=== PATIENT | female | born 1980 | race Caucasian/White ===

== ENCOUNTER → 2019-07-17 19:11 | Outpatient (CLI) | payer OTHER, SELFPAY ==
[2019-07-17 19:42] LABS: Influenza A - CEPHEID Flu A POSITIVE (NEGATIVE); Influenza B - CEPHEID Flu B NEGATIVE (NEGATIVE)
== END ==
PROVIDERS: Visit Provider Physician Assistant
DX: R68.89 Other general symptoms and signs (principal)
CPT/HCPCS: 87502

== ENCOUNTER → 2020-09-03 16:43 | Outpatient (CLI) | payer OTHER, SELFPAY ==
[2020-09-03] MEDS: COVID-19 VACC #1, MRNA(MOD) 100 MCG/0.5 ML VIAL IM (16:48)
== END ==
PROVIDERS: Visit Provider Internal Medicine
DX: Z23 Encounter for immunization (principal)
CPT/HCPCS: 0011A; 91301

== ENCOUNTER → 2020-10-01 16:16 | Outpatient (CLI) | payer OTHER, SELFPAY ==
[2020-10-01] MEDS: COVID-19 VACC #2, MRNA(MOD) 100 MCG/0.5 ML VIAL IM (16:17)
== END ==
PROVIDERS: Visit Provider Internal Medicine
DX: Z23 Encounter for immunization (principal)
CPT/HCPCS: 0012A; 91301

== ENCOUNTER 2020-12-23 12:00 | Outpatient (RCR) | payer OTHER, SELFPAY ==
--- NOTE | 2020-11-11 16:01 | PT.OIE ---
Current Diagnoses Pelvic muscle wasting (11/10/20) Female genital prolapse, unspecified (11/10/20) Pelvic and perineal pain (11/10/20) Past Medical History (Last Updated 07/17/19 @ 19:45 by Shonda Grimm PA-C) Influenza A Visit Care Team Role Provider Type ARNOLD Serra Attending Provider Non-Staff Primary Care Provider Referring Provider Specialty: Family Practice Address: [address] [place] [address], [place], [address] Email: Physical Therapy Initial Evaluation PT-OP-A Visit Information Start: 11/10/20 12:59 Freq: Status: Active Protocol: Document 11/10/20 13:00 [facility] (Rec: 11/10/20 13:16 [facility] [id number]) Out-Patient Physical Therapy Visit Information Visit Information Visit Type Initial Evaluation Visit Start Time 13:00 Visit Stop Time 13:45 Total Visit Minutes 45 Visit Number 1 Evaluation Information Evaluation Date 11/10/20 PT-OP-B Current Condition Start: 11/10/20 12:59 Freq: Status: Active Protocol: Document 11/10/20 13:00 [facility] (Rec: 11/10/20 13:16 [facility] [id number]) Current Condition History of Current Condition Onset Date 2016 Current Complaints pelvic pain pelvic pressure and heaviness History of Current Condition 4-6 weeks ago was very uncomfortable, painful intercourse, and irritation with walking. IUDs have been uncomfortable, hx of a ovarian cyst that self resolved. she ahs had 1 vaginal delivery 5 years ago, a small amount of tearing, some leaking with jumping sneezing or at times has been hesitant to run, no difficulty reported emptying her bladder or bowels. 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 Treatment Goals Patient/Caregiver Goals to improve strength of the pelvic floor and reduce pain PT-OP-C Subjective Start: 11/10/20 12:59 Freq: Status: Active Protocol: Document 11/10/20 13:00 [facility] (Rec: 11/11/20 15:49 [facility] [id number]) Patient Questionnaires Pelvic Pain and Urgency/Frequency Patient Symptom Scale Pelvic Pain Score 10 PT-OP-F Manual Assessment Start: 11/10/20 12:59 Freq: Status: Active Protocol: Document 11/10/20 13:00 [facility] (Rec: 11/11/20 15:49 [facility] [id number]) Manual Assessments Soft Tissue Assessment Soft Tissue Mobility Assessment tightness in the suprapubic fascia PT-OP-I Pelvic Floor Start: 11/10/20 12:59 Freq: Status: Active Protocol: Document 11/10/20 13:00 [facility] (Rec: 11/11/20 15:49 [facility] [id number]) Pelvic Floor Assessment Urine Pelvic Floor Surgery No Pelvic Clock Pelvic Clock 6-9 Guarding,Tenderness,Tightness Pelvic Clock Other muscle spasms on the right side of the pelvic clock, lifficulty relaxing the pelvic floor Prolapse Uterine Prolapse Grade 1 Rectocele Grade 1 SEMG (uV) Baseline 6.5 10 Second Contraction 12.3 Recruitment Pattern Fair Relaxation Poor/Slow Holding Fair Stability of Hold Fair SEMG Stability of Rest Poor/Slow Contraction Ability Manual Muscle Testing Left 2 Manual Muscle Testing Right 2 Manual Muscle Testing Anterior 2 Manual Muscle Testing Posterior 1 Comments Pelvic Floor Comments average contraction on EMG biofeedback is 12.2 uv with max of 31.2 uv average rest of 6.5 uv PT-OP-J Posture/Palpation/Skin Start: 11/10/20 12:59 Freq: Status: Active Protocol: Document 11/10/20 13:00 [facility] (Rec: 11/11/20 15:49 [facility] [id number]) Posture Evaluation Comments Posture Comments 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 Palpation Assessment Location right pelvic clock Palpation Findings Soft Tissue Tightness,Muscle Guarding Palpation Details msucle spasm and guarding suprapubic fascia Palpation Location suprapubic fascia Palpation Findings Soft Tissue Tightness,Spasm Palpation Details tightness in the fascia in the suprapubic region PT-OP-T Assessment and Plan Start: 11/10/20 12:59 Freq: Status: Active Protocol: Document 11/10/20 13:00 [facility] (Rec: 11/11/20 15:49 [facility] [id number]) Physical Therapy Assessment Goals right side levator ani muscle spasm and guarding Short Term Goal (STG) Yas is educated on stretches for thepelvic floor to reduce muscle spasms and guarding. With palpation she is able to relax the right lateral wall of the levator ani STG Duration 5 weeks pelvic pain and heaviness Impairment pelvic pain and heaviness Group Home Goal (LTG) Yas has an overall decreased complaint of pelvic pain and she is able to relax her pelvic floor to baseline on EMG biofeedback. LTG Duration 8 weeks Decreased strength of the levator ani Impairment Decreased strength of the levator ani Group Home Goal (LTG) Yas is able to show improved strength of the levator ani to 3/5 MMT or better for improved support of her pelvic organs LTG Duration 8 weeks Assessment Summary Assessment Yas is a 40 year old female who presents to physical therapy with pelvic pain and pelvic pressure/heaviness. She has a history of one vaginal delivery 5 years ago with what she reports is a small amount of tearing. Yas reports pain with intercourse and some leaking with jumping or sneezing. SHe reports feeling hesitant to go for a run due to pelvic pressure. 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 She feels tight in the front of her body. With examination today she is guarded in the right side of the levator ani. Yas tests weak in her levator ani musculature with 1 /5 posterior pelvic clock and 2/5 MMT for all other parts of the pelvic clock. She has difficulty relaxing her pelvic floor following a contraction and shows a elevated resting tone on EMG biofeedback of 6.5 uv. It is difficult for her to hold a endurance contraction. There is a rectocele and uterine prolapse grade 1-2 palpated. Yas would benefit from PT addressing postural modifications and stretches to open up her anterior chest to help decrease forward pressure on her pelvic organs, pelvic floor relaxed awareness as well as strengthening to provide improved support for the pelvic organs. Physical Therapy Plan Frequency and Duration Frequency of Treatment 1x/Week Duration of Treatment 8 Plan of Care Start Date 11/10/20 Plan of Care End Date 01/05/21 Therapeutic Interventions Therapeutic Interventions Home Exercise Program, Neuromuscular Re-education, Self-Care/Home Management,Soft Tissue Mobilization, Therapeutic Exercises Modalities Biofeedback,Electric Stimulation Next Visit Focus/Plan Next Note Type Treatment Note Next Visit Plan review stretches for the pelvic floor, relaxed awareness on EMGbiofeedback, begin diaphragmatic breathing, foam roll stretch for postural stretch
--- NOTE | 2020-11-11 16:01 | PT.OPPOC ---
Physical, Occupational & Speech Therapy At [facility] Current Diagnoses Pelvic muscle wasting (11/10/20) Female genital prolapse, unspecified (11/10/20) Pelvic and perineal pain (11/10/20) Visit Care Team Role Provider Type ARNOLD Serra Attending Provider Non-Staff Primary Care Provider Referring Provider Specialty: Family Practice Address: [address] [place] [address], [place], [address] Email: Plan Of Care PT-OP-T Assessment and Plan Start: 11/10/20 12:59 Freq: Status: Active Protocol: Document 11/10/20 13:00 [facility] (Rec: 11/11/20 15:49 [facility] [id number]) Physical Therapy Assessment Goals right side levator ani muscle spasm and guarding Short Term Goal (STG) Yas is educated on stretches for the pelvic floor to reduce muscle spasms and guarding. With palpation she is able to relax the right lateral wall of the levator ani STG Duration 5 weeks pelvic pain and heaviness Impairment pelvic pain and heaviness Senior Mechanical Design Engineer Goal (LTG) Yas has an overall decreased complaint of pelvic pain and she is able to relax her pelvic floor to baseline on EMG biofeedback. LTG Duration 8 weeks Decreased strength of the levator ani Impairment Decreased strength of the levator ani [facility] Goal (LTG) Yas is able to show improved strength of the levator ani to 3/5 MMT or better for improved support of her pelvic organs LTG Duration 8 weeks Assessment Summary Assessment Yas is a 40 year old female who presents to physical therapy with pelvic pain and pelvic pressure/heaviness. She has a history of one vaginal delivery 5 years ago with what she reports is a small amount of tearing. Yas reports pain with intercourse and some leaking with jumping or sneezing. SHe reports feeling hesitant to go for a run due to pelvic pressure. 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 She feels tight in the front of her body. With examination today she is guarded in the right side of the levator ani. Yas tests weak in her levator ani musculature with 1 /5 posterior pelvic clock and 2/5 MMT for all other parts of the pelvic clock. She has difficulty relaxing her pelvic floor following a contraction and shows a elevated resting tone on EMG biofeedback of 6.5 uv. It is difficult for her to hold a endurance contraction. There is a rectocele and uterine prolapse grade 1-2 palpated. Yas would benefit from PT addressing postural modifications and stretches to open up her anterior chest to help decrease forward pressure on her pelvic organs, pelvic floor relaxed awareness as well as strengthening to provide improved support for the pelvic organs. Physical Therapy Plan Frequency and Duration Frequency of Treatment 1x/Week Duration of Treatment 8 Plan of Care Start Date 11/10/20 Plan of Care End Date 01/05/21 Therapeutic Interventions Therapeutic Interventions Home Exercise Program, Neuromuscular Re-education, Self-Care/Home Management,Soft Tissue Mobilization, Therapeutic Exercises Modalities Biofeedback,Electric Stimulation Next Visit Focus/Plan Next Note Type Treatment Note Next Visit Plan review stretches for the pelvic floor, relaxed awareness on EMG biofeedback, begin diaphragmatic breathing, foam roll stretch for postural stretch Plan of Care Dates Plan of Care Start Date 11/10/20 Plan of Care End Date 01/05/21 Electronically Signed by: Virginia Moser, PT 11/11/20 [id number] Please Sign and Return: I have reviewed this Plan of Care and certify that the skilled therapy services above are required to meet the patient?s needs. Physician Signature Date Printed Name and Credentials Clinical Instructor Signature Printed Name and Credentials
--- NOTE | 2020-11-18 13:55 | PT.OTN ---
Current Diagnoses Pelvic muscle wasting (11/18/20) Female genital prolapse, unspecified (11/18/20) Pelvic and perineal pain (11/18/20) Physical Therapy Treatment Note PT-OP-A Visit Information Start: 11/10/20 12:59 Freq: Status: Active Protocol: Document 11/18/20 12:03 [facility] (Rec: 11/18/20 12:16 [facility] [id number]) Out-Patient Physical Therapy Visit Information Visit Information Visit Type Treatment Note Visit Start Time 12:00 Visit Stop Time 12:45 Total Visit Minutes 45 Visit Number 2 PT-OP-B Current Condition Start: 11/10/20 12:59 Freq: Status: Active Protocol: Document 11/10/20 13:00 [facility] (Rec: 11/10/20 13:16 [facility] [id number]) Current Condition History of Current Condition Onset Date 2015 Current Complaints pelvic pain pelvic pressure and heaviness History of Current Condition 4-6 weeks ago was very uncomfortable, painful intercourse, and irritation with walking. IUDs have been uncomfortable, hx of a ovarian cyst that self resolved. she ahs had 1 vaginal delivery 5 years ago, a small amount of tearing, some leaking with jumping sneezing or at times has been hesitant to run, no difficulty reported emptying her bladder or bowels. 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 Treatment Goals Patient/Caregiver Goals to improve strength of the pelvic floor and reduce pain PT-OP-C Subjective Start: 11/10/20 12:59 Freq: Status: Active Protocol: Document 11/18/20 12:03 [facility] (Rec: 11/18/20 12:16 [facility] [id number]) OP-PT Subjective Patient Comments Patient Comments She though about her pelvic floor with sewing this week. Pt reports she often feels like she is pushing down on her pelvic floor PT-OP-F Manual Assessment Start: 11/10/20 12:59 Freq: Status: Active Protocol: Document 11/10/20 13:00 [facility] (Rec: 11/11/20 15:49 [facility] [id number]) Manual Assessments Soft Tissue Assessment Soft Tissue Mobility Assessment tightness in the suprapubic fascia PT-OP-I Pelvic Floor Start: 11/10/20 12:59 Freq: Status: Active Protocol: Document 11/10/20 13:00 [facility] (Rec: 11/11/20 15:49 [facility] [id number]) Pelvic Floor Assessment Urine Pelvic Floor Surgery No Pelvic Clock Pelvic Clock 6-9 Guarding,Tenderness,Tightness Pelvic Clock Other muscle spasms on the right side of the pelvic clock, lifficulty relaxing the pelvic floor Prolapse Uterine Prolapse Grade 1 Rectocele Grade 1 SEMG (uV) Baseline 6.5 10 Second Contraction 12.3 Recruitment Pattern Fair Relaxation Poor/Slow Holding Fair Stability of Hold Fair SEMG Stability of Rest Poor/Slow Contraction Ability Manual Muscle Testing Left 2 Manual Muscle Testing Right 2 Manual Muscle Testing Anterior 2 Manual Muscle Testing Posterior 1 Comments Pelvic Floor Comments average contraction on EMG biofeedback is 12.2 uv with max of 31.2 uv average rest of 6.5 uv PT-OP-J Posture/Palpation/Skin Start: 11/10/20 12:59 Freq: Status: Active Protocol: Document 11/10/20 13:00 [facility] (Rec: 11/11/20 15:49 [facility] [id number]) Posture Evaluation Comments Posture Comments 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 Palpation Assessment Location right pelvic clock Palpation Findings Soft Tissue Tightness,Muscle Guarding Palpation Details msucle spasm and guarding suprapubic fascia Palpation Location suprapubic fascia Palpation Findings Soft Tissue Tightness,Spasm Palpation Details tightness in the fascia in the suprapubic region PT-OP-Q Treatments Start: 11/10/20 12:59 Freq: Status: Active Protocol: Document 11/18/20 12:03 [facility] (Rec: 11/18/20 12:16 [facility] [id number]) Therapeutic Exercises Supine Exercises diaphragmatic breathing Supine Exercise Name diaphragmatic breathing with EMG biofeedback Comments working on relaxing the belly and the pelvic floor with the inhale stretches for pelvic pain Comments for HEP, happy baby, shabana pose, modified pelvic floor squat, piriformis pelvic floor long holds Comments 15.1 uv max of 23.8 uv able to relax to baseline at times between contracti PT-OP-T Assessment and Plan Start: 11/10/20 12:59 Freq: Status: Active Protocol: Document 11/18/20 12:03 [facility] (Rec: 11/18/20 12:16 [facility] [id number]) Physical Therapy Assessment Assessment Summary Assessment Yas brannon was able to relax to baseline on EMG biofeedback using breathing techniques. Pt to observe how often she is clenching her pelvic floor and abdominal wall while sewing during the day. Physical Therapy Plan Frequency and Duration Frequency of Treatment 1x/Week Duration of Treatment 8 Plan of Care Start Date 11/10/20 Plan of Care End Date 01/05/21 Next Visit Focus/Plan Next Note Type Treatment Note
--- NOTE | 2020-12-23 13:18 | PT.OTN ---
Current Diagnoses Pelvic muscle wasting (12/23/20) Female genital prolapse, unspecified (12/23/20) Pelvic and perineal pain (12/23/20) Physical Therapy Treatment Note PT-OP-A Visit Information Start: 11/10/20 12:59 Freq: Status: Active Protocol: Document 12/23/20 12:02 [facility] (Rec: 12/23/20 12:08 [facility] [id number]) Out-Patient Physical Therapy Visit Information Visit Information Visit Type Treatment Note Visit Start Time 12:00 Visit Stop Time 12:45 Total Visit Minutes 45 Visit Number 3 PT-OP-B Current Condition Start: 11/10/20 12:59 Freq: Status: Active Protocol: Document 11/10/20 13:00 [facility] (Rec: 11/10/20 13:16 [facility] [id number]) Current Condition History of Current Condition Onset Date 2015 Current Complaints pelvic pain pelvic pressure and heaviness History of Current Condition 4-6 weeks ago was very uncomfortable, painful intercourse, and irritation with walking. IUDs have been uncomfortable, hx of a ovarian cyst that self resolved. she ahs had 1 vaginal delivery 5 years ago, a small amount of tearing, some leaking with jumping sneezing or at times has been hesitant to run, no difficulty reported emptying her bladder or bowels. 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 Treatment Goals Patient/Caregiver Goals to improve strength of the pelvic floor and reduce pain PT-OP-C Subjective Start: 11/10/20 12:59 Freq: Status: Active Protocol: Document 12/23/20 12:02 [facility] (Rec: 12/23/20 12:08 [facility] [id number]) OP-PT Subjective Patient Comments Patient Comments biking aggravates her left gluteal, pt has been trying to work on her exercises but has felt really busy with her son so isn't doing them as often as she would like PT-OP-F Manual Assessment Start: 11/10/20 12:59 Freq: Status: Active Protocol: Document 11/10/20 13:00 [facility] (Rec: 11/11/20 15:49 [facility] [id number]) Manual Assessments Soft Tissue Assessment Soft Tissue Mobility Assessment tightness in the suprapubic fascia PT-OP-I Pelvic Floor Start: 11/10/20 12:59 Freq: Status: Active Protocol: Document 11/10/20 13:00 [facility] (Rec: 11/11/20 15:49 [facility] [id number]) Pelvic Floor Assessment Urine Pelvic Floor Surgery No Pelvic Clock Pelvic Clock 6-9 Guarding,Tenderness,Tightness Pelvic Clock Other muscle spasms on the right side of the pelvic clock, lifficulty relaxing the pelvic floor Prolapse Uterine Prolapse Grade 1 Rectocele Grade 1 SEMG (uV) Baseline 6.5 10 Second Contraction 12.3 Recruitment Pattern Fair Relaxation Poor/Slow Holding Fair Stability of Hold Fair SEMG Stability of Rest Poor/Slow Contraction Ability Manual Muscle Testing Left 2 Manual Muscle Testing Right 2 Manual Muscle Testing Anterior 2 Manual Muscle Testing Posterior 1 Comments Pelvic Floor Comments average contraction on EMG biofeedback is 12.2 uv with max of 31.2 uv average rest of 6.5 uv PT-OP-J Posture/Palpation/Skin Start: 11/10/20 12:59 Freq: Status: Active Protocol: Document 11/10/20 13:00 [facility] (Rec: 11/11/20 15:49 [facility] [id number]) Posture Evaluation Comments Posture Comments 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 Palpation Assessment Location right pelvic clock Palpation Findings Soft Tissue Tightness,Muscle Guarding Palpation Details msucle spasm and guarding suprapubic fascia Palpation Location suprapubic fascia Palpation Findings Soft Tissue Tightness,Spasm Palpation Details tightness in the fascia in the suprapubic region PT-OP-Q Treatments Start: 11/10/20 12:59 Freq: Status: Active Protocol: Document 12/23/20 13:12 [facility] (Rec: 12/23/20 13:18 [facility] [id number]) Therapeutic Exercises Supine Exercises level 1 lower abdominal progression Reps/Minutes x 10 reps TA with marches Reps/Minutes x 10 iliopsoas stretch Comments vandana test position stretches for pelvic pain Comments for HEP, happy baby, shabana pose, modified pelvic floor squat, piriformis pelvic floor long holds Comments 15.1 uv max of 23.8 uv able to relax to baseline consistently Other Exercises quadruped OAL lifts Reps/Minutes x 5 Comments cues for keeping pelvis stable Manual Therapy Treatment Manual Techniques recheck of pelvic floor tone and strength Comments 4/5 MMT for all areas of the pelvic floor, able to relax the right lateral wall to baseline now. PT-OP-T Assessment and Plan Start: 11/10/20 12:59 Freq: Status: Active Protocol: Document 12/23/20 13:12 [facility] (Rec: 12/23/20 13:18 [facility] [id number]) Physical Therapy Assessment Goals right side levator ani muscle spasm and guarding Short Term Goal (STG) Yas is educated on stretches for the pelvic floor to reduce muscle spasms and guarding. With palpation she is able to relax the right lateral wall of the levator ani GOAL MET STG Duration 5 weeks pelvic pain and heaviness Impairment pelvic pain and heaviness Shampoo Person Goal (LTG) Yas has an overall decreased complaint of pelvic pain and she is able to relax her pelvic floor to baseline on EMG biofeedback. GOAL MET with EMG biofeedback, Yas is still noting c/o pelvic pressure LTG Duration 8 weeks Decreased strength of the levator ani Impairment Decreased strength of the levator ani Skilled Nursing Goal (LTG) Yas is able to show improved strength of the levator ani to 3/5 MMT or better for improved support of her pelvic organs GOAL MET LTG Duration 8 weeks Assessment Summary Assessment With manual exam today Yas is able to better recruit her pelvic floor and she is able to relax the right lateral wall much easier now. We discussed other ways to decompress the pelvis and spent time discussing working her lower abdominals to also give support. There is still a grade 2 rectocele present. At this time Yas would like to work on exercises on her own and will follow up when she has more time for PT Physical Therapy Plan Discharge Physical Therapy Discharge Reasons Patient Request
== END 2020-12-23 13:54 | disposition home or self-care (01) ==
LOC: PHYS 12:00
PROVIDERS: PCP Nurse Practitioner Family; Referring Provider Nurse Practitioner Family; Visit Provider Nurse Practitioner Family
DX: R10.2 Pelvic and perineal pain (principal); N81.9 Female genital prolapse, unspecified; N81.84 Pelvic muscle wasting
CPT/HCPCS: 97110; 97161

== ENCOUNTER → 2020-12-24 07:22 | Outpatient (CLI) | payer OTHER, SELFPAY ==
[2020-12-24 08:44] LABS: Add Manual Diff / Slide Review NO; Basophils Absolute Auto 0 /uL (0-100); Basophils Percent Auto 0.6 % (0-2); Eosinophils Absolute Auto 200 /uL (0-450); Eosinophils Percent Auto 3.2 % (2-4); Hematocrit 37.7 % (36-46); Hemoglobin 13.2 g/dL (12.0-16.0); Lymphocytes Absolute Auto 1400 /uL (1100-4500); Lymphocytes Percent Auto 23.1 % (25-40); Mean Corpuscular HGB Conc 35.1 % (30-36); Mean Corpuscular Hemoglobin 32.7 PG (26-34); Mean Corpuscular Volume 93.4 fL (80-100); Monocytes Absolute Auto 500 /uL (0-900); Monocytes Percent Auto 8.6 % (3-14); Neutrophils Absolute Auto 4000 /uL (1500-7000); Neutrophils Percent Auto 64.5 % (50-75); Platelet Count 316 X10^3/uL (150-400); Red Blood Cell Count 4.04 X10^6/uL (4.0-5.2); Red Cell Distribution Width 12.6 % (11.6-14.8); White Blood Cell Count 6.2 X10^3/uL (4.5-11.0)
[2020-12-24 09:13] LABS: Alanine Aminotransferase 22 IU/L (<35); Albumin 4.2 g/dL (3.5-5.0); Albumin Globulin Ratio 1.4 (1.0-2.8); Alkaline Phosphatase 50 U/L (38-126); Aspartate Aminotransferase 32 IU/L (14-36); BUN Creatinine Ratio 13.8 (6-22); Bilirubin Total 0.7 mg/dL (0.2-1.3); Blood Urea Nitrogen 12 mg/dL (7-17); Calcium 9.5 mg/dL (8.4-10.2); Carbon Dioxide 27 mmol/L (22-32); Chloride 104 mmol/L (98-107); Cholesterol 172 mg/dL (140-199); Estimated Glomerular Filt Rate > 60.0 mL/min (>60); Globulin 2.9 g/dL (1.7-4.1); Glucose 91 mg/dL (70-100); HDL Cholesterol 68 mg/dL (40-60); HEMOLYSIS < 15 (0-50); LDL Cholesterol Calculated 72 mg/dL (<100); Potassium 3.9 mmol/L (3.4-5.1); Sodium 138 mmol/L (137-145); Total Protein 7.1 g/dL (6.3-8.2); Triglycerides 160 mg/dL (35-150)
[2020-12-24 09:45] LABS: Vitamin D 25 Hydroxy (D3) 45.8 ng/mL (30.0-100.0)
== END ==
PROVIDERS: PCP Family Medicine; Referring Provider Family Medicine; Visit Provider Family Medicine
DX: Z13.21 Encounter for screening for nutritional disorder (principal); Z13.220 Encounter for screening for lipoid disorders; Z76.89 Persons encountering health services in other specified circumstances
CPT/HCPCS: 36415; 80053; 80061; 82306; 84443; 85025

== ENCOUNTER → 2021-04-06 13:21 | Outpatient (CLI) | payer OTHER, SELFPAY ==
--- NOTE | 2021-04-06 | DI.US.S_ITS ---
PROCEDURE: US PELVIC COMPLETE INDICATIONS: PELVIC AND PERINEAL PAIN TECHNIQUE: Real-time scanning was performed of the pelvic organs, with image documentation. Additional endovaginal scanning was necessary due to incomplete visualization of the adnexal and endometrial structures by transabdominal scanning. COMPARISON: None. FINDINGS: Uterus: Uterus is normal in size at 6.4 x 3.6 x 3.2 cm. The endometrium measures 5 mm in combined thickness. Ovaries: The right ovary measures 2.8 x 1.8 x 1.6 cm. The left ovary measures 5.2 x 4.6 x 4.2 cm and demonstrates a simple cyst within it that measures 4.1 x 4.2 x 3.6 cm. The ovaries otherwise have a normal sonographic appearance. No adnexal masses are seen. Normal appearing arterial and venous waveforms are confirmed to the left ovary. Other: No pathologic free abdominal or pelvic fluid. IMPRESSION: 4.2 cm simple appearing left ovarian cyst. In a patient of this age, this is almost certainly benign. If it would be clinically appropriate, a followup pelvic ultrasound could be considered in 6 weeks to assure resolution/ improvement. Negative for left ovarian torsion. Dictated by: Cristiano Taylor M.D. on 04/06/2021 at 13:31 Approved by: Cristiano Taylor M.D. on 04/06/2021 at 13:33
== END ==
PROVIDERS: PCP Family Medicine; Referring Provider Nurse Practitioner Family; Visit Provider Nurse Practitioner Family
DX: R10.2 Pelvic and perineal pain (principal); N83.202 Unspecified ovarian cyst, left side
CPT/HCPCS: 76830; 76856

== ENCOUNTER → 2023-01-23 07:37 | Outpatient (CLI) | payer OTHER, SELFPAY ==
[2023-01-23 08:28] LABS: Add Manual Diff / Slide Review NO; Basophils Absolute Auto 0 /uL (0-100); Basophils Percent Auto 0.8 % (0-2); Eosinophils Absolute Auto 200 /uL (0-450); Eosinophils Percent Auto 4.3 % (2-4); Hematocrit 36.8 % (36-46); Hemoglobin 12.8 g/dL (12.0-16.0); Lymphocytes Absolute Auto 1500 /uL (1100-4500); Lymphocytes Percent Auto 28.1 % (25-40); Mean Corpuscular HGB Conc 34.7 % (30-36); Mean Corpuscular Hemoglobin 32.7 PG (26-34); Mean Corpuscular Volume 94.3 fL (80-100); Monocytes Absolute Auto 500 /uL (0-900); Monocytes Percent Auto 8.8 % (3-14); Neutrophils Absolute Auto 3100 /uL (1500-7000); Platelet Count 342 X10^3/uL (150-400); Red Blood Cell Count 3.91 X10^6/uL (4.0-5.2); Red Cell Distribution Width 12.9 % (11.6-14.8); White Blood Cell Count 5.4 X10^3/uL (4.5-11.0)
[2023-01-23 08:51] LABS: Alanine Aminotransferase 16 IU/L (<35); Albumin Globulin Ratio 1.4 (1.0-2.8); Alkaline Phosphatase 56 U/L (38-126); Aspartate Aminotransferase 23 IU/L (14-36); Bilirubin Total 0.7 mg/dL (0.2-1.3); Blood Urea Nitrogen 10 mg/dL (7-17); Carbon Dioxide 27 mmol/L (22-32); Chloride 104 mmol/L (98-107); Cholesterol 184 mg/dL (140-199); Estimated Glomerular Filt Rate > 60 mL/min (>60); Globulin 2.8 g/dL (1.7-4.1); Glucose 91 mg/dL (70-100); HDL Cholesterol 63 mg/dL (40-60); HEMOLYSIS < 15 (0-50); LDL Cholesterol Calculated 94 mg/dL (<100); Potassium 4.3 mmol/L (3.4-5.1); Sodium 135 mmol/L (137-145); Total Protein 6.8 g/dL (6.3-8.2); Triglycerides 137 mg/dL (35-150)
[2023-01-24 07:38] LABS: Thyroid Stimulating Hormone 1.71 uIU/mL (0.47-4.68)
== END ==
PROVIDERS: PCP Naturopath; Referring Provider Naturopath; Visit Provider Naturopath
DX: Z00.00 Encounter for general adult medical examination without abnormal findings (principal)
CPT/HCPCS: 36415; 80053; 80061; 84443; 85025

== ENCOUNTER → 2023-11-20 08:45 | Outpatient (CLI) | payer OTHER, SELFPAY ==
[2023-11-20 09:59] LABS: Hematocrit 35.6 % (36-46); Hemoglobin 12.1 g/dL (12.0-16.0); Mean Corpuscular HGB Conc 34.1 % (30-36); Mean Corpuscular Hemoglobin 32.2 PG (26-34); Mean Corpuscular Volume 94.4 fL (80-100); Platelet Count 329 X10^3/uL (150-400); Red Blood Cell Count 3.77 X10^6/uL (4.0-5.2); White Blood Cell Count 5.9 X10^3/uL (4.5-11.0)
[2023-11-20 11:13] LABS: Ferritin 24 ng/mL (6-137)
== END ==
PROVIDERS: PCP Naturopath; Referring Provider Naturopath; Visit Provider Naturopath
DX: E61.1 Iron deficiency (principal)
CPT/HCPCS: 36415; 82728; 85027

== ENCOUNTER → 2024-06-28 09:57 | Outpatient (CLI) | payer OTHER, SELFPAY ==
[2024-06-28 10:41] LABS: Hematocrit 35.1 % (36-46); Hemoglobin 12.2 g/dL (12.0-16.0)
[2024-06-28 11:53] LABS: Ferritin 37 ng/mL (6-137)
== END ==
PROVIDERS: PCP Naturopath; Referring Provider Naturopath; Visit Provider Naturopath
DX: E61.1 Iron deficiency (principal)
CPT/HCPCS: 36415; 82728; 85014; 85018